=== PATIENT | male | born 1975 | race African-American/Black ===

== ENCOUNTER 2024-11-17 12:15 | Emergency (ER) | payer MEDICARE, MEDICAID ==
[~2024-11-17] VITALS: Ht 182.9 cm; Wt 118.0 kg
[2024-11-17 12:17] VITALS: O2SAT 96
[2024-11-17] MEDS: SODIUM CHLORIDE 0.9% 1,000 ML IV ONE (12:30)
[2024-11-17 12:59] LABS: BASOPHILS % 0.6 % (0.0-2.0); EOSINOPHILS % 4.7 % (0.0-5.0); HEMATOCRIT. 41.3 % (42.0-52.0); HEMOGLOBIN. 13.7 g/dL (14.0-18.0); LYMPHOCYTES % 15.3 % (20.0-50.0); MEAN PLATELET VOLUME 8.6 fl (7.4-10.4); MONOCYTES % 7.2 % (2.0-8.0); NEUTROPHILS % 72.2 % (40.0-76.0); PLATELET 286 x1000/uL (130-400); RED BLOOD CELL COUNT 4.65 mill/uL (4.7-6.1); RED CELL DISTRIBUTION WIDTH 13.7 % (11.6-14.6)
[2024-11-17 13:15] LABS: CREATININE 1.0 mg/dL (0.6-1.3); TROPONIN I HIGH SENSITIVITY < 4 ng/L (3.0-53)
[2024-11-17 13:16] LABS: UREA NITROGEN BLOOD 11 mg/dL (9-23)
[2024-11-17 13:17] LABS: ASPARTATE AMINOTRANSFERASE 25 IU/L (<34)
[2024-11-17 13:18] LABS: BILIRUBIN DIRECT 0.2 mg/dL (<=3.0)
[2024-11-17 13:19] LABS: BILIRUBIN TOTAL 0.5 mg/dL (0.1-1.0); PROTEIN TOTAL 7.0 g/dL (6.0-8.3)
[2024-11-17 15:06] LABS: CLARITY URINE CLEAR (CLEAR); COLOR URINE YELLOW (YELLOW); GLUCOSE URINE NEGATIVE (NEGATIVE); KETONES URINE NEGATIVE (NEGATIVE); LEUKOCYTE ESTERASE URINE NEGATIVE (NEGATIVE); NITRITE URINE NEGATIVE (NEGATIVE); OCCULT BLOOD URINE NEGATIVE (NEGATIVE); PH URINE 6.5 (4.5-8.0); PROTEIN URINE NEGATIVE (NEGATIVE); SPECIFIC GRAVITY URINE 1.021 (1.005-1.030); UROBILINOGEN URINE 1.0 E.U./dL (0.2-1.0)
[2024-11-17 15:41] VITALS: BP 114/71; PULSE 70; RESP 15; TEMP 36.8; O2SAT 96
== END 2024-11-17 15:42 | disposition home or self-care (01) ==
LOC: ER 12:15
DX: R53.1 Weakness (principal); E78.00 Pure hypercholesterolemia, unspecified; I10 Essential (primary) hypertension; E03.9 Hypothyroidism, unspecified; Z79.890 Hormone replacement therapy
CPT/HCPCS: 80076; 80048; 81003; 80320; 82550; 83690; 85025; 84484; 36415; 71045; 93005; 96360; 99285; J7030; G0480